=== PATIENT | male | born 1995 | race Asian ===

== ENCOUNTER 2019-03-31 12:01 | Emergency (ER) | payer OTHER ==
[~2019-03-31] VITALS: Ht 167.6 cm; Wt 68.0 kg
[2019-03-31 12:17] VITALS: BP 146/73
--- NOTE | 2019-03-31 12:18 | NUR ---
SEEN AND EXAMINED BY DR. JOHNSON.
--- NOTE | 2019-03-31 12:22 | NUR ---
PT IS WHEELED TO CT SCAN VIA WHEELCHAIR.
--- NOTE | 2019-03-31 13:26 | NUR ---
Patient discharged to home in stable condition. Written and verbal after care instructions given. Patient verbalizes understanding of instruction.
== END 2019-03-31 13:27 | disposition home or self-care (01) ==
LOC: ER 12:13
DX: S00.12XA Contusion of left eyelid and periocular area, initial encounter (principal); S00.81XA Abrasion of other part of head, initial encounter; W01.0XXA Fall on same level from slipping, tripping and stumbling without subsequent striking against object, initial encounter; Y93.89 Activity, other specified; Y92.89 Other specified places as the place of occurrence of the external cause; Y99.8 Other external cause status
CPT/HCPCS: 70450-TC; 70486-TC